=== PATIENT | female | born 1955 | race Caucasian/White ===

== ENCOUNTER → 2023-04-08 | Outpatient (CLI) | payer BC, MEDICARE ==
--- NOTE | 2023-04-09 15:00 | MM ---
Reason for Exam: Screening (asymptomatic). Patient History: Menarche at age 16. First Full-Term at age 23. Postmenopausal. Risk Values: Payton 5 year model risk: 1.4%. NCI Lifetime model risk: 5.1%. Prior Study Comparison: No prior studies available for comparison. Tissue Density: The breast tissue is heterogeneously dense. This may lower the sensitivity of mammography. Findings: Analyzed By CAD. There is no suspicious group of microcalcifications or new suspicious mass. Overall Assessment: Negative, BI-RAD 1 Management: Screening Mammogram of both breasts in [address] [facility] will attempt to contact patient to return for supplemental views and ultrasound if indicated. Patient should continue monthly self-breast exams. A clinical breast exam by your physician is recommended on an annual basis. This exam should not preclude additional follow-up of suspicious palpable abnormalities. Note on Payton scores and lifetime risk: 1. A Payton score greater than 3% is considered moderate risk. If this is the case, consider specialist referral to assess eligibility for a risk reducing agent. 2. If overall lifetime risk for the development of breast cancer is 20% or higher, the patient may qualify for future screening with alternating mammogram and breast MRI. Electronically signed and approved by: Jignesh Soria DO
== END | disposition home or self-care (01) ==
LOC: RADMAMWWP 14:57
PROVIDERS: ATTEND Family Medicine
DX: Z12.31 Encounter for screening mammogram for malignant neoplasm of breast (principal); Z78.0 Asymptomatic menopausal state
CPT/HCPCS: 77063; 77067

== ENCOUNTER 2023-04-24 08:13 | Day surgery (SDC) | payer BC, MEDICARE ==
[~2023-04-24 08:13] MED LIST: LACTATED RINGERS 1,000 ML IV SCH; LIDOCAINE 1% (10MG/ML) FOR IV START INTRADERMA PRN
[2023-04-24 08:54] VITALS: TEMP 97.7
[2023-04-24] MEDS ORDERED: PROPOFOL 10 MG/ML 20 ML VIAL IV ONE (09:56)
--- NOTE | 2023-04-24 10:01 | P.GSHP ---
History of Present Illness H&P Date: 04/24/23 Chief Complaint: Screening colonoscopy This a 67-year-old female who presents today for screening colonoscopy. Patient denies any significant GI complaints. Past Medical History Past Medical History: No Reported History Additional Past Medical History / Comment(s): kidney stones History of Any Multi-Drug Resistant Organisms: None Reported Past Surgical History: No Surgical Hx Reported Additional Past Surgical History / Comment(s): laser surgery shanda eyes, Past Anesthesia/Blood Transfusion Reactions: No Reported Reaction Smoking Status: Never smoker - Past Family History Father Family Medical History: No Reported History Medications and Allergies Home Medications Medication Instructions Recorded Confirmed Type Brimonidine Tartrate/Timolol 1 drop BOTH EYES BID 04/17/23 04/17/23 History [Brimonidine-Timolol 0.2%-0.5%] Latanoprost [Latanoprost 0.005%] 1 drop BUCCAL HS 04/17/23 04/17/23 History Allergies Allergy/AdvReac Type Severity Reaction Status Date / Time No Known Allergies Allergy Verified 04/24/23 08:38 Surgical - Exam Vital Signs Temp Pulse Resp BP Pulse Ox 97.7 F 69 16 142/71 96 04/24/23 08:43 04/24/23 08:43 04/24/23 08:43 04/24/23 08:43 04/24/23 08:43 - General well developed, well nourished, no distress - Eyes PERRL - ENT normal pinna - Neck no masses - Respiratory normal expansion - Cardiovascular Rhythm: regular - Abdomen Abdomen: soft, non tender Assessment and Plan Assessment: We'll perform screening colonoscopy.
--- NOTE | 2023-04-24 10:18 | P.OP ---
Date of Procedure: 04/24/23 Preoperative Diagnosis: Screening colonoscopy Postoperative Diagnosis: Mild diverticulosis Procedure(s) Performed: Colonoscopy Anesthesia: MAC Surgeon: Hernan Bernard Pathology: none sent Condition: stable Disposition: PACU Description of Procedure: The patient's placed on the endoscopy table in the lateral position. She received IV sedation. Digital rectal exam was performed. This revealed no abnormalities. Flexible colonoscope was then placed patient anus and passed throughout the entire colon. The ileocecal valve was visualized. The cecum, ascending and transverse colon appeared normal. The descending and sigmoid Carlos Alberto appeared normal. The scope was then brought back the rectum and this appeared normal. Scope withdrawn for patient.
[2023-04-24 10:58] VITALS: BP 134/74; PULSE 74; RESP 18
== END 2023-04-24 10:55 | disposition home or self-care (01) ==
LOC: ORWHC2ENDO 08:13
PROVIDERS: ATTEND Surgery
DX: Z12.11 Encounter for screening for malignant neoplasm of colon (principal); K57.30 Diverticulosis of large intestine without perforation or abscess without bleeding
CPT/HCPCS: 45378; J2704